=== PATIENT | female | born 1990 | race Caucasian/White ===

== ENCOUNTER 2023-01-01 07:46 | Day surgery (SDC) | payer MEDICAID ==
[~2023-01-01] VITALS: Ht 180.3 cm; Wt 83.5 kg
[2023-01-01] MEDS ORDERED: MEPERIDINE 50 MG/ML VIAL ONE (08:02)
[2023-01-01 08:22] LABS: HCG,QUAL RESULT NEGATIVE (NEGATIVE)
[2023-01-01] MEDS ORDERED: DIPHENHYDRAMINE INJ 50 MG/ML VIAL ONE (09:17)
[2023-01-01] MEDS: MIDAZOLAM HCL 5 MG/5 ML VIAL ONE ×4 (09:19→09:26)
[2023-01-01] MEDS ORDERED: SIMETHICONE 40 MG/0.6 ML ML ONE (09:20)
[2023-01-01] MEDS ORDERED: MIDAZOLAM HCL 5 MG/5 ML VIAL ONE (09:37)
[2023-01-01 13:06] VITALS: BP_SYST 100
== END 2023-01-01 11:02 | disposition home or self-care (01) ==
LOC: SDS 07:46 → SMU 08:07 → SDS 11:02
PROVIDERS: ATTEND Internal Medicine Gastroenterology
DX: R19.4 Change in bowel habit (principal); K29.50 Unspecified chronic gastritis without bleeding; B96.81 Helicobacter pylori [H. pylori] as the cause of diseases classified elsewhere; Z80.0 Family history of malignant neoplasm of digestive organs; K64.8 Other hemorrhoids; K21.00 Gastro-esophageal reflux disease with esophagitis, without bleeding; K44.9 Diaphragmatic hernia without obstruction or gangrene; Z79.899 Other long term (current) drug therapy
CPT/HCPCS: 45378; 43239; 87081; 84703; 36415; 88305; 88312; 88313; 99152; 99153; G0378; J1200; J2250; J2175